=== PATIENT | female | born 1950 | race Caucasian/White ===

== ENCOUNTER 2020-03-24 12:59 | Outpatient (CLI) | payer MEDICARE, BC | END 2020-03-24 23:59 | disposition home or self-care (01) | LOC: RAD 12:59 | PROVIDERS: ATTEND Psychiatry & Neurology Neurology | DX: K21.9 Gastro-esophageal reflux disease without esophagitis (principal); R13.12 Dysphagia, oropharyngeal phase; R49.0 Dysphonia; G20 Parkinson's disease | CPT/HCPCS: 74230 ==

== ENCOUNTER 2021-06-29 08:38 | Outpatient (CLI) | payer MEDICARE, BC ==
[~2021-06-29] VITALS: Ht 154.9 cm; Wt 75.0 kg
[2021-06-29] MEDS ORDERED: nitroGLYCERIN 0.4mg SUBLingual tab SL PRN (11:15)
[2021-06-29] MEDS ORDERED: metoprolol tartrate 1mg/ml inj IV PRN (11:15)
[2021-06-29] MEDS ORDERED: aminophylline 500mg/20ml vial IV PRN (11:15)
[2021-06-29] MEDS ORDERED: regadenoson 0.4mg/5ml syringe IV PRN (11:15)
[2021-06-29 11:21] VITALS: BP 153/82
[2021-06-29 11:26] VITALS: BP 162/77
[2021-06-29 11:27] VITALS: BP 151/69
[2021-06-29 11:28] VITALS: BP 151/72
[2021-06-29 11:29] VITALS: BP 151/77
[2021-06-29 11:30] VITALS: BP 142/78
== END 2021-06-29 23:59 | disposition home or self-care (01) ==
LOC: CARD DIAG 08:38
PROVIDERS: ATTEND Internal Medicine Cardiovascular Disease
DX: I08.1 Rheumatic disorders of both mitral and tricuspid valves (principal); R00.2 Palpitations; R94.31 Abnormal electrocardiogram [ECG] [EKG]; R06.02 Shortness of breath
CPT/HCPCS: 78452; 93017; 93306; A9500; J2785